=== PATIENT | female | born 1965 | race American Indian/Alaskan Native ===

== ENCOUNTER 2017-11-08 15:16 | Emergency (ER) | payer OTHER ==
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
[2017-11-08 23:25] VITALS: BP 164/95
== END 2017-11-08 23:24 | disposition home or self-care (01) ==
LOC: ED 15:16
DX: S46.812A Strain of other muscles, fascia and tendons at shoulder and upper arm level, left arm, initial encounter (principal); S46.811A Strain of other muscles, fascia and tendons at shoulder and upper arm level, right arm, initial encounter; M54.2 Cervicalgia
CPT/HCPCS: 99282